=== PATIENT | female | born 1990 | race Caucasian/White ===

== ENCOUNTER 2021-11-27 19:44 | Emergency (ER) | payer SELFPAY ==
[2021-11-27] MEDS ORDERED: Cephalexin 500 MG CAP ONE (20:28)
[2021-11-27] MEDS ORDERED: Sulfameth/Trimethoprim DS 800-160mg TAB ONE (20:29)
[2021-11-27] MEDS ORDERED: Mupirocin 2% Ointment 22 GM Tube ONE (20:29)
[2021-11-27] MEDS ORDERED: Boostrix 0.5 ML (Tdap) VIAL ONE (20:32)
== END 2021-11-27 20:57 | disposition home or self-care (01) ==
LOC: MADERS 19:44
DX: L01.00 Impetigo, unspecified (principal); L03.114 Cellulitis of left upper limb; L03.113 Cellulitis of right upper limb; T23.262D Burn of second degree of back of left hand, subsequent encounter; T23.261D Burn of second degree of back of right hand, subsequent encounter; Z79.899 Other long term (current) drug therapy; Z23 Encounter for immunization
CPT/HCPCS: 90471; 90715